=== PATIENT | female | born 2000 | race Caucasian/White ===

== ENCOUNTER 2021-11-03 20:42 | Emergency (ER) | payer MEDICAID ==
[2021-11-03 22:52] LABS: Pregnancy Test - Urine (BHCG) Negative (Negative); Pregu Control Background? CLEAR/WHITE (CLR/WHITE); Pregu Control Bar Appear? YES (CONTROL BAR); Specific Gravity 1.028 (1.002-1.036)
== END 2021-11-03 23:16 | disposition home or self-care (01) ==
LOC: MADERS 20:42
DX: R55 Syncope and collapse (principal); F17.210 Nicotine dependence, cigarettes, uncomplicated
CPT/HCPCS: 81025; 93005